=== PATIENT | female | born 1960 | race Caucasian/White ===

== ENCOUNTER 2018-08-17 00:18 | Emergency (ER) | payer BC ==
[2018-08-17] MEDS ORDERED: Sodium Chloride 0.9% 1000 ML 1,000 ML IV STA (00:58)
[2018-08-17] MEDS ORDERED: Zofran 4 MG/2 ML VIAL IV ONE (00:58)
[2018-08-17] MEDS ORDERED: Zofran 4 MG/2 ML VIAL ONE (01:09)
[2018-08-17] MEDS ORDERED: Sodium Chloride 0.9% 1000 ML 1,000 ML ONE (01:09)
[2018-08-17 01:14] LABS: BASOPHIL % 0.3 % (0.0-0.4); Basophil (Absolute #) 0.05 (0-0.4); Eosinophil % 1.2 % (0.00-5.0); Eosinophil (Absolute #) 0.21 (0-0.5); Granulocyte Absolute (ANC) 13.49 (1.4-6.9); Granulocytes % 75.7 % (36.0-66.0); Hematocrit 43.6 % (35-47); Hemoglobin 15.2 gm/dl (12.0-16.0); Lymphocyte (Absolute #) 3.01 (1.0-4.6); Lymphocytes % 16.9 % (24.0-44.0); Mean Corpuscular Hgb Concent. 34.9 g/dl (32-36); Mean Platelet Volume 10.3 fl (6-9.5); Monocyte (Absolute #) 1.05 (0.0-1.3); Monocytes % 5.9 % (0.0-12.0); Platelet Count 345 K/mm3 (150-450); Red Cell Distribution Width 12.9 % (11.5-14.0); White Blood Count 17.8 K/mm3 (4.0-10.5)
[2018-08-17 01:28] LABS: ALBUMIN 4.7 g/dL (3.5-5.0); ALKALINE PHOSPHATASE 83 U/L (38-126); AMYLASE 81 U/L (30-110); ANION GAP 18.1 MEQ/L (5-15); BLOOD UREA NITROGEN 24 mg/dL (7-17); CHLORIDE 100 mmol/L (98-107); Calcium 10.3 mg/dL (8.4-10.2); Carbon Dioxide 26 mmol/L (22-30); Creatinine 1 0.82 mg/dL (0.52-1.04); Glucose 141 mg/dL (74-106); LIPASE 138 U/L (23-300); Potassium 4.4 mmol/L (3.5-5.1); SGOT/AST 41 U/L (14-36); SGPT/ALT 50 U/L (0-35); SODIUM 139 mmol/L (137-145)
[2018-08-17 01:33] LABS: Appearance TURBID (CLEAR); Bilirubin NEGATIVE (NEGATIVE); Blood NEGATIVE Ery/ul (0-5); Epithelial Cells RARE /HPF (FEW); Glucose NEGATIVE (NEGATIVE); Ketones NEGATIVE (NEGATIVE); Leukocyte Esterase NEGATIVE (NEGATIVE); Mucus MANY /HPF (NEGATIVE); Nitrite NEGATIVE (NEGATIVE); Protein,Urine Dip 30 (Negative); RBC 0-2 /HPF (0-2); Specific Gravity 1.028 (1.005-1.025); Urobilinogen NEGATIVE mg/dL (0-1)
[2018-08-17] MEDS ORDERED: Transderm Scop 1.5MG Patch TOP ONE (03:02)
[2018-08-17] MEDS ORDERED: MORPHINE SULFATE 2 MG INJ IV ONE (03:02)
[2018-08-17] MEDS ORDERED: MORPHINE SULFATE 2 MG INJ ONE (03:16)
[2018-08-17] MEDS ORDERED: Protonix 40MG Tablet PO ONE (04:51)
[2018-08-17] MEDS ORDERED: Pepcid 20 MG PO ONE (04:51)
[2018-08-17] MEDS ORDERED: Pepcid 20 MG ONE ×2 (04:58→05:01)
[2018-08-17] MEDS ORDERED: Protonix 40MG Tablet ONE (04:58)
[2018-08-17 06:02] VITALS: O2SAT 99
--- NOTE | 2018-08-17 06:40 | ERPHSYRPT ---
- History of Present Illness Historian: patient Exam Limitations: no limitations Patient Subjective Stated Complaint: vomiting, upper abd pain raditaing into back onset after eating out mon miah Triage Nursing Assessment: abd pain 9/10 vomiting multiple times onset mon miah, Physician History: Pt is a 58 y/o female with severe vomiting and abdominal pain. Pt stated, had gastritis that looked like was improving, and her diarrhea resolved, but her N/ V were so severe, she was not able to hole to any PO intake. Pt stated, the abdominal pain was severe, in the epigastrium. Pt denies F/C/S. No SOB or cough. No chest discomfort. No dysuria, frequency or urgency. Timing/Duration: day(s) Activities at Onset: none Quality: sharpness, stabbing Abdominal Pain Onset Location: epigastric Pain Radiation: epigastric Severity of Pain-Max: severe Severity of Pain-Current: severe Modifying Factors: Improves With: nothing Associated Symptoms: nausea, vomiting Previous symptoms: no prior history Allergies/Adverse Reactions: No Known Drug Allergies Allergy (Unverified 08/17/18 01:30) Home Medications: Aspirin 81 gm Chew [Baby Aspirin 81 mg Chew] 81 mg PO DAILY 08/17/18 [ History] Atorvastatin Calcium [Lipitor] 10 mg PO DAILY 08/17/18 [History] Bupropion HCl 150 mg Sr [Wellbutrin SR 150 MG] 150 mg PO DAILY 08/17/18 [ History] Dextroamphetamine/Amphetamine [Adderall Xr 25 mg Capsule] 50 mg PO DAILY [History] Furosemide 40 mg [Lasix 40 MG] 40 mg PO DAILY 08/17/18 [History] Losartan Potassium 100 mg PO DAILY 08/17/18 [History] Losartan Potassium 100 mg PO DAILY 08/17/18 [History] Sertraline HCl [Zoloft] 75 mg PO DAILY 08/17/18 [History] Thyroid,Pork [Onia Thyroid] 90 mcg PO DAILY 08/17/18 [History] Thyroid,Pork [Onia Thyroid] 90 mcg PO DAILY 08/17/18 [History] Hx Tetanus, Diphtheria Vaccination/Date Given: Yes Hx Influenza Vaccination/Date Given: Yes Hx Pneumococcal Vaccination/Date Given: Yes - Review of Systems Constitutional: No Fever, No Chills Eyes: No Symptoms Ears, Nose, & Throat: No Symptoms Respiratory: No Cough, No Dyspnea Cardiac: No Chest Pain, No Edema, No Syncope Abdominal/Gastrointestinal: Abdominal Pain, Nausea, Vomiting Genitourinary Symptoms: No Dysuria Musculoskeletal: No Back Pain, No Neck Pain Neurological: No Dizziness, No Focal Weakness, No Sensory Changes - Past Medical History Pertinent Past Medical History: Yes Neurological History: No Pertinent History ENT History: No Pertinent History Cardiac History: High Cholesterol, Hypertension Respiratory History: No Pertinent History Endocrine Medical History: Hypothyroidism Musculoskeletal History: No Pertinent History History: No Pertinent History Psycho-Social History: Attention Deficit Disorder, Depression Female Reproductive Disorders: No Pertinent History - Past Surgical History Past Surgical History: Yes Neuro Surgical History: No Pertinent History Cardiac: Cardiac Catheterization Respiratory: No Pertinent History Gastrointestinal: Appendectomy Genitourinary: No Pertinent History Female Surgical History: Hysterectomy, Section Other Surgical History: hyster back appy - Social History Smoking Status: Current every day smoker How long have you smoked: 30 yrs Exposure to second hand smoke: Yes Drug Use: none Patient Lives Alone: No - Female History Hx Now: No - Nursing Vital Signs Nursing Vital Signs: Initial Vital Signs Temperature 98.3 F 08/17/18 00:46 Pulse Rate 88 08/17/18 00:46 Respiratory Rate 20 08/17/18 00:46 Blood Pressure 150/81 08/17/18 00:46 O2 Sat by Pulse Oximetry 98 08/17/18 00:46 Pain Scale Pain Intensity 0 - Physical Exam General Appearance: severe distress, alert Eye Exam: PERRL/EOMI, eyes nml inspection Ears, Nose, Throat Exam: normal ENT inspection, pharynx normal, moist mucous membranes Neck Exam: normal inspection, non-tender, supple, full range of motion Respiratory Exam: normal breath sounds, lungs clear, No respiratory distress Cardiovascular Exam: regular rate/rhythm, normal heart sounds Gastrointestinal/Abdomen Exam: soft, tenderness (epigastric) Back Exam: normal inspection, normal range of motion, No CVA tenderness, No vertebral tenderness Extremity Exam: normal inspection, normal range of motion, pelvis stable Neurologic Exam: alert, oriented x 3, cooperative, normal mood/affect, nml cerebellar function, sensation nml, No motor deficits SpO2 Interpretation: normal SpO2: 99 O2 Delivery: Room Air - CT Exams Abdomen/Pelvis CT Interpretation: Tele-radiologist Report (Gastric wall thickening may represnt inflammation. Neoplastic etiology not entirely excluded.) Ordered Tests: Active Orders 24 hr Category Date Time Status ABDOMEN AND PELVIS W&WO CONTRA [CT] Stat Exams 08/17/18 03:42 Taken AMYLASE Stat Lab 08/17/18 00:58 Completed CBC W DIFF Stat Lab 08/17/18 00:58 Completed CMP Stat Lab 08/17/18 00:58 Completed LIPASE Stat Lab 08/17/18 00:58 Completed UA W/RFX UR CULTURE Stat Lab 08/17/18 00:58 Completed Medication Summary Discontinued Medications Generic Name Dose Route Start Last Admin Trade Name Freq PRN Reason Stop Dose Admin Famotidine 40 mg 08/17/18 04:51 08/17/18 04:59 Pepcid 20 Mg PO 08/17/18 04:52 40 mg STAT ONE Administration Famotidine Confirm 08/17/18 04:58 Pepcid 20 Mg Administered 08/17/18 04:59 Dose 20 mg .ROUTE .STK-MED ONE Famotidine Confirm 08/17/18 05:01 Pepcid 20 Mg Administered 08/17/18 05:02 Dose 20 mg .ROUTE .STK-MED ONE Sodium Chloride 1,000 mls @ 999 mls/hr 08/17/18 00:58 08/17/18 01:19 Sodium Chloride 0.9% 1000 Ml IV 08/17/18 01:58 999 mls/hr .Q1H1M STA Administration Sodium Chloride Confirm 08/17/18 01:09 Sodium Chloride 0.9% 1000 Ml Administered 08/17/18 01:10 Dose 1,000 mls @ ud .ROUTE .STK-MED ONE Morphine Sulfate 2 mg 08/17/18 03:02 08/17/18 03:19 Morphine Sulfate 2 Mg Inj IV 08/17/18 03:03 2 mg STAT ONE Administration Morphine Sulfate Confirm 08/17/18 03:16 Morphine Sulfate 2 Mg Inj Administered 08/17/18 03:17 Dose 2 mg .ROUTE .STK-MED ONE Ondansetron HCl 4 mg 08/17/18 00:58 08/17/18 01:19 Zofran 4 Mg/2 Ml Vial IV 08/17/18 00:59 4 mg STAT ONE Administration Ondansetron HCl Confirm 08/17/18 01:09 Zofran 4 Mg/2 Ml Vial Administered 08/17/18 01:10 Dose 4 mg .ROUTE .STK-MED ONE Pantoprazole Sodium 40 mg 08/17/18 04:51 08/17/18 05:00 Protonix 40mg Tablet PO 08/17/18 04:52 40 mg STAT ONE Administration Pantoprazole Sodium Confirm 08/17/18 04:58 Protonix 40mg Tablet Administered 08/17/18 04:59 Dose 40 mg .ROUTE .STK-MED ONE Scopolamine HBr 1.5 mg 08/17/18 03:02 08/17/18 03:24 Transderm Scop 1.5mg Patch TOP 08/17/18 03:03 1.5 mg STAT ONE Administration Lab/Rad Data: Laboratory Result Diagrams 08/17/18 00:58 08/17/18 00:58 Laboratory Results 08/17/18 08/17/18 08/17/18 Range/Units 00:58 00:58 00:58 WBC 17.8 H (4.0-10.5) K/mm3 RBC 4.90 (4.1-5.4) M/mm3 Hgb 15.2 (12.0-16.0) gm/dl Hct 43.6 (35-47) % MCV 89.0 (78-100) fl MCH 31.0 (26-32) pg MCHC 34.9 (32-36) g/dl RDW 12.9 (11.5-14.0) % Plt Count 345 (150-450) K/mm3 MPV 10.3 H (6-9.5) fl Gran % 75.7 H (36.0-66.0) % Eos # (Auto) 0.21 (0-0.5) Absolute Lymphs (auto) 3.01 (1.0-4.6) Absolute Monos (auto) 1.05 (0.0-1.3) Lymphocytes % 16.9 L (24.0-44.0) % Monocytes % 5.9 (0.0-12.0) % Eosinophils % 1.2 (0.00-5.0) % Basophils % 0.3 (0.0-0.4) % Absolute Granulocytes 13.49 H (1.4-6.9) Basophils # 0.05 (0-0.4) Sodium 139 (137-145) mmol/L Potassium 4.4 (3.5-5.1) mmol/L Chloride 100 (98-107) mmol/L Carbon Dioxide 26 (22-30) mmol/L Anion Gap 18.1 H (5-15) MEQ/L BUN 24 H (7-17) mg/dL Creatinine 0.82 (0.52-1.04) mg/dL Estimated GFR > 60.0 ML/MIN Glucose 141 H (74-106) mg/dL Calcium 10.3 H (8.4-10.2) mg/dL Total Bilirubin 1.00 (0.2-1.3) mg/dL AST 41 H (14-36) U/L ALT 50 H (0-35) U/L Alkaline Phosphatase 83 (38-126) U/L Serum Total Protein 8.0 (6.3-8.2) g/dL Albumin 4.7 (3.5-5.0) g/dL Amylase 81 (30-110) U/L Lipase 138 (23-300) U/L Urine Color YELLOW (YELLOW) Urine Appearance TURBID (CLEAR) Urine pH 5.0 (5-6) Ur Specific [place] 1.028 (1.005-1.025) Urine Protein 30 (Negative) Urine Ketones NEGATIVE (NEGATIVE) Urine Blood NEGATIVE (0-5) [place]/ul Urine Nitrite NEGATIVE (NEGATIVE) Urine Bilirubin NEGATIVE (NEGATIVE) Urine Urobilinogen NEGATIVE (0-1) mg/dL Ur Leukocyte Esterase NEGATIVE (NEGATIVE) Urine WBC (Auto) 6-10 (0-5) /HPF Urine RBC (Auto) 0-2 (0-2) /HPF U Epithel Cells (Auto) RARE (FEW) /HPF Urine Bacteria (Auto) NONE (NEGATIVE) /HPF Urine Mucus (Auto) MANY (NEGATIVE) /HPF Urine Culture Reflexed NO (NO) Urine Glucose NEGATIVE (NEGATIVE) mg/dL - Progress Progress: improved Progress Note: 08/17/18 06:40 Pt was seen and examined. Labs were ordered, including UA. Pt had elevated BUN , secondary to vomiting, and she got 1 lit of NSS, and Morphine, and Zofran Her WBCs were 17.8, and UA was checked that was negative. Pt had no fever, and no SOB. I ordered the CT of her abd and pelvis, that showed inflammation of the stomach. Pt got Protonic and Pepcid, and she improved. Pt was advised to f/u with her PCP for GI referral and EGD, secondary to CT results. I will give pt a prescription for Protonix 40mg BID for gastritis. Will see patient in: office Counseled pt/family regarding: need for follow-up - Departure Departure Disposition: Home Clinical Impression: Gastric inflammation Condition: Stable Critical Care Time: No Referrals: CHELA MCMULLEN [Primary Care Provider] - Additional Instructions: Take Protonix 40mg BID for 10 days, and f/u with PCP for referral for EGD. Forms: Work/School Release Form Prescriptions: PANTOPRAZOLE 40 mg Tablet [Protonix 40MG Tablet] 40 mg PO BID #20 tab
[2018-08-17 06:52] VITALS: BP 133/77; PULSE 87
--- NOTE | 2018-08-17 09:37 | XRAY ---
Indication: Nausea and vomiting. Multiple contiguous axial images obtained through the abdomen and pelvis prior to and following 80 cc Isovue 370 contrast as ordered. Comparison: None Lung bases demonstrates tiny left base calcified granulomas and minimal fibrosis/scarring. No infiltrate or effusion. Heart is not enlarged. Noncontrasted images through the abdomen are negative for pathologic this or calcifications/calculi. Stomach is mildly fluid distended. Mid to distal stomach also demonstrates circumferential wall thickening. Noncontrasted stomach and bowel loops appear nonobstructed. Several small bowel loops are mildly fluid distended with fluid leveling unchanged on postcontrast and delayed imaging, ileus versus gastroenteritis. No free fluid/air. Patient reports appendectomy and hysterectomy. Mild diffuse fatty liver. Postcontrast images demonstrates normal visceral enhancement and renal excretion. 4-5 mm left upper renal exophytic cyst. Remaining liver, gallbladder, pancreas, spleen, adrenal glands, kidneys, ureters, and bladder appear unremarkable. Minimal scattered aortoiliac calcifications. No AAA or pathologic retroperitoneal lymphadenopathy. Osseous structures intact with mild degenerative changes throughout the thoracolumbar spine. No ventral or inguinal hernias. Impression: 1. Fluid distended stomach and small bowel loops with fluid leveling, ileus versus gastroenteritis. Also gastric wall thickening for which malignancy not completely excluded. 2. Incidental fatty liver and left renal cyst. Comment: Preliminary interpretation was made by [facility]. No critical discrepancy. CTDI 20.61
== END 2018-08-17 07:02 | disposition home or self-care (01) ==
LOC: ED 00:18
DX: K29.70 Gastritis, unspecified, without bleeding (principal); I10 Essential (primary) hypertension; E78.00 Pure hypercholesterolemia, unspecified; E03.9 Hypothyroidism, unspecified; Z79.899 Other long term (current) drug therapy
CPT/HCPCS: 36415; 74178; 80053; 81001; 82150; 83690; 85025; 96360; 96374; 96375; 99284; J2270; J2405; A9270-GY